=== PATIENT | female | born 1965 | race Caucasian/White ===

== ENCOUNTER → 2016-09-04 | Outpatient (CLI) | payer OTHER ==
[~2016-09-04] MED LIST: ANT25 PO; BLAC540C PO; CHOL100010 PO; CHOL20009 PO; CIPR-255 PO; DICL100T5 PO; FISH1CAP PO; HYDR12.56 PO; LEVO100T PO; LEVO112T4 PO; METR-163 PO; MULTTAB58 PO; PROBCAP PO; VITATAB11 PO
--- NOTE | 2016-09-04 10:51 | DIAGNOSTIC IMAGING REPORT ---
LEFT INJ MAJOR JN SHLDR,HIP,KNEE CLINICAL HISTORY: DJD; L HIPpain COMPARISON STUDY: None FLUOROSCOPY TIME: . FINDINGS: Following description of procedure and informed consent, a 22-gauge needle was advanced to the left hip joint space. A test injection confirmed its intra-articular location. This is followed by the administration of 5 cc of Marcaine, 2 cc of Celestone,. There are no complications. IMPRESSION: Successful left hip therapeutic injection Electronically signed by: Waldo Karimi M.D. 09/04/2016 10:49 AM Dictated Date/Time: 09/04/2016 10:48 AM
== END | disposition home or self-care (01) ==
LOC: C.RADBC 09:46
PROVIDERS: ATTEND Orthopaedic Surgery
DX: M16.12 Unilateral primary osteoarthritis, left hip (principal)

== ENCOUNTER 2017-01-10 09:10 | Emergency (ER) | payer OTHER ==
[~2017-01-10] VITALS: Ht 165.1 cm; Wt 84.1 kg
[~2017-01-10 09:10] MED LIST changes: -CHOL20009 PO; -CIPR-255 PO; -DICL100T5 PO; -FISH1CAP PO; -LEVO112T4 PO; -METR-163 PO
[2017-01-10 09:11] VITALS: TEMP 37.2; Ht 165.1 cm; Wt 84.1 kg
[2017-01-10] MEDS ORDERED: FISH1CAP PO (09:36)
[2017-01-10] MEDS ORDERED: CHOL20009 PO (09:36)
[2017-01-10] MEDS ORDERED: DICL100T5 PO (09:36)
[2017-01-10] MEDS ORDERED: LEVO112T4 PO (09:36)
[2017-01-10 10:08] LABS: ALT/SGPT 22 U/L (12-78); AST/SGOT 16 U/L (15-37); BLOOD UREA NITROGEN 12 mg/dl (7-18); BUN/CREATININE RATIO 14.6 (10-20); CALCIUM 9.2 mg/dl (8.5-10.1); CARBON DIOXIDE 28 mmol/L (21-32); CHLORIDE 106 mmol/L (98-107); GLUCOSE 80 mg/dl (70-99); POTASSIUM 3.6 mmol/L (3.5-5.1); SODIUM 141 mmol/L (136-145)
[2017-01-10 10:10] LABS: BASO % 0.4 %; BASO ABS # 0.03 K/uL (0-0.2); COMPLETE YES; EOS % 3.4 %; HEMATOCRIT 39.6 % (37-47); IG% 0.1 %; LYMPH % 16.4 %; LYMPH ABS # 1.29 K/uL (1.2-3.4); MEAN CORPUSCULAR HEMOGLOBIN 31.6 pg (25-34); MEAN CORPUSCULAR HGB CONC 35.9 g/dl (32-36); MEAN PLATELET VOLUME 9.6 fL (7.4-10.4); MONO % 6.8 %; NEUT % 72.9 %; PLATELET COUNT 226 K/uL (130-400); WHITE BLOOD COUNT 7.85 K/uL (4.8-10.8)
[2017-01-10 10:11] LABS: ALKALINE PHOSPHATASE 73 U/L (45-117)
[2017-01-10 10:18] LABS: URINE APPEARANCE CLEAR (CLEAR); URINE BILIRUBIN NEG (NEG); URINE COLOR YELLOW; URINE EPITHELIAL CELL AUTO 20-30 /lpf (0-5); URINE NITRITE NEG (NEG); URINE SPECIFIC GRAVITY 1.012 (1.000-1.030); UROBILINOGEN NEG (NEG); ZZUR CULT IF INDIC CLEAN CATCH NO
[2017-01-10 10:22] LABS: MANUAL MICROSCOPIC REQUIRED? NO; REVIEW REQ? NO
[2017-01-10] MEDS ORDERED: METR-163 PO (10:29)
[2017-01-10] MEDS ORDERED: CIPR-255 PO (10:29)
--- NOTE | 2017-01-10 10:30 | EMERGENCY ROOM VISIT NOTE ---
History First contact with patient: 09:16 Chief Complaint: ABDOMINAL PAIN Stated Complaint: LOWER ABD. PAIN/CRAMPS-DIVERTICULITIS Nursing Triage Summary: lower abd cramping and 1 episode of diarrhea a day no blood in stool no n/v pt has a hx of diverticulitis History of Present Illness The patient is a 51 year old female who presents to the Emergency Room with complaints of lower abdominal pain intermittently over the last 2 days. The patient states that she has one loose bowel movement per day and one other normal bowel movement per day. The patient denies any nausea or vomiting. The patient denies any urinary symptoms of frequency, urgency, dysuria or hematuria. The patient states that the pain is relieved with bowel movement. She currently does not have any pain. The patient states that she is concerned for diverticulitis since she has had it twice in the past. She states the symptoms are similar. She is going out of town this weekend and states she does not want to worsen while she is out of town. Review of Systems 10 system review was performed and was negative unless stated otherwise history of present illness. Past Medical/Surgical History Medical Problems: (1) section with complications (2) DIVERTICULITIS COLON (W/O MENT OF HEMORRHAGE) (3) HYPERTENSION NOS Family History Diabetes mellitus FHx: cancer FHx: heart disease Hypertension Social History Smoking Status: Never Smoker Alcohol Use: occasionally Drug Use: none Marital Status: Housing Status: lives with family Occupation Status: employed Current/Historical Medications Scheduled Cholecalciferol (Vitamin D), 2,000 UNITS PO DAILY Diclofenac Sodium (Voltaren Xr), 100 MG PO BID Fish Cxq-Voouay-Jieaonm D-Zeax ([employer] Advantage/Vitam), 2 CAP PO BID Hydrochlorothiazide (Hctz), 12.5 MG PO DAILY Levothyroxine Sodium (Levothyroxine Sodium), 112 MCG PO DAILY Multiple Vitamin (Multivitamin), 1 TAB PO DAILY Probiotic Product ([employer]), 1 CAP PO DAILY Scheduled PRN Meclizine HCl (Meclizine HCl), 1 TAB PO Q8 PRN for vetigo Allergies Coded Allergies: Codeine (Verified Allergy, Severe, ANAPHYLAXIS, 11/29/15) Morphine (Verified Allergy, Severe, ANAPHYLAXIS TO OPIOIDS (? ALL), 11/29/15 ) Morphine and Related (Unverified Allergy, Severe, ANAPHYLAXIS, 11/29/15) Physical Exam Vital Signs Date Time Temp Pulse Resp B/P (MAP) Pulse Ox O2 Delivery O2 Flow Rate FiO2 01/10/17 09:11 37.2 72 16 131/83 98 Room Air Physical Exam GENERAL: 51-year-old white female appears in no acute distress. MENTAL Status: Patient is alert and oriented 3. MOUTH: Mucosa is moist NECK: Supple, no lymphadenopathy noted. No carotid bruits noted. LUNGS: Clear auscultation without wheezes rales or rhonchi. CARDIAC: Regular rate and rhythm without murmur. Pulses is full and equal throughout. BACK: No CVA tenderness noted. ABDOMEN: Positive bowel sounds all 4 quadrants. Soft, nontender to palpation without organomegaly or masses. RECTAL: Small external hernia noted. Anal sphincter tone intact. No internal masses noted. Stool guaiac was negative. EXTREMITIES: No cyanosis or edema noted. Medical Decision & Procedures Laboratory Results 01/10/17 09:23 Red Blood Count 4.50, Mean Corpuscular Volume 88.0, Mean Corpuscular Hemoglobin 31.6, Mean Corpuscular Hemoglobin Concent 35.9, Mean Platelet Volume 9.6, Neutrophils (%) (Auto) 72.9, Lymphocytes (%) (Auto) 16.4, Monocytes (%) (Auto) 6.8, Eosinophils (%) (Auto) 3.4, Basophils (%) (Auto) 0.4, Neutrophils # (Auto) 5.72, Lymphocytes # (Auto) 1.29, Monocytes # (Auto) 0.53, Eosinophils # (Auto) 0.27, Basophils # (Auto) 0.03 01/10/17 09:23 Test 01/10/17 09:18 01/10/17 09:23 Urine Color YELLOW Urine Appearance CLEAR (CLEAR) Urine pH 8.0 (4.5-7.5) Urine Specific [place] 1.012 (1.000-1.030) Urine Protein NEG (NEG) Urine Glucose (UA) NEG (NEG) Urine Ketones NEG (NEG) Urine Occult Blood NEG (NEG) Urine Nitrite NEG (NEG) Urine Bilirubin NEG (NEG) Urine Urobilinogen NEG (NEG) Urine Leukocyte Esterase SMALL (NEG) Urine WBC (Auto) 1-5 /hpf (0-5) Urine RBC (Auto) 0-4 /hpf (0-4) Urine Hyaline Casts (Auto) 0 /lpf (0-5) Urine Epithelial Cells (Auto) 20-30 /lpf (0-5) Urine Bacteria (Auto) NEG (NEG) White Blood Count 7.85 K/uL (4.8-10.8) Red Blood Count 4.50 M/uL (4.2-5.4) Hemoglobin 14.2 g/dL (12.0-16.0) Hematocrit 39.6 % (37-47) Mean Corpuscular Volume 88.0 fL (80-100) Mean Corpuscular Hemoglobin 31.6 pg (25-34) Mean Corpuscular Hemoglobin Concent 35.9 g/dl (32-36) Platelet Count 226 K/uL (130-400) Mean Platelet Volume 9.6 fL (7.4-10.4) Neutrophils (%) (Auto) 72.9 % Lymphocytes (%) (Auto) 16.4 % Monocytes (%) (Auto) 6.8 % Eosinophils (%) (Auto) 3.4 % Basophils (%) (Auto) 0.4 % Neutrophils # (Auto) 5.72 K/uL (1.4-6.5) Lymphocytes # (Auto) 1.29 K/uL (1.2-3.4) Monocytes # (Auto) 0.53 K/uL (0.11-0.59) Eosinophils # (Auto) 0.27 K/uL (0-0.5) Basophils # (Auto) 0.03 K/uL (0-0.2) RDW Standard Deviation 38.8 fL (36.4-46.3) RDW Coefficient of Variation 12.1 % (11.5-14.5) Immature Granulocyte % (Auto) 0.1 % Immature Granulocyte # (Auto) 0.01 K/uL (0.00-0.02) Anion Gap 7.0 mmol/L (3-11) Est Creatinine Clear Calc Drug Dose 88.1 ml/min Estimated GFR () 98.2 Estimated GFR (Non- 84.8 BUN/Creatinine Ratio 14.6 (10-20) Calcium Level 9.2 mg/dl (8.5-10.1) Total Bilirubin 0.5 mg/dl (0.2-1) Direct Bilirubin < 0.1 mg/dl (0-0.2) Aspartate Amino Transf (AST/SGOT) 16 U/L (15-37) Alanine Aminotransferase (ALT/SGPT) 22 U/L (12-78) Alkaline Phosphatase 73 U/L (45-117) Total Protein 7.8 gm/dl (6.4-8.2) Albumin 3.9 gm/dl (3.4-5.0) Lipase 124 U/L (73-393) ED Course The patient's EMR and medication list were reviewed. The patient was seen here 2 years ago with similar symptoms and had a CAT scan at that time which revealed diverticulitis in the proximal sigmoid region. The patient was evaluated. IV access was obtained. CBC differential, renal profile, LFTs and lipase levels was ordered. Urinalysis was ordered. The patient was offered pain medication but declined. Labs are reviewed and were unremarkable. White count was normal. Urinalysis was negative. The patient was informed of the findings. I also discussed with the patient that since the patient is presenting with similar symptoms of her past diverticulitis I will just go ahead and prophylactically treat her without obtaining a CAT scan. The patient was in agreement with treatment plan and was discharged home in stable condition. Medical Decision Differential diagnosis include acute diverticulitis, UTI, enteritis, colitis Impression Primary Impression: Diverticulitis Departure Information Dispostion Home / Self-Care Condition GOOD Prescriptions Metronidazole (Flagyl) 500 Mg Tab 500 MG PO BID for 10 Days, #20 TAB Prov: Reyna Karimi PA-C 01/10/17 Ciprofloxacin Hcl (CIPRO) 500 Mg Tab 500 MG PO BID for 10 Days, #20 TAB Prov: Reyna Karimi PA-C 01/10/17 Referrals Tory Golden DO (PCP) Forms Call Back Authorization, HOME CARE DOCUMENTATION FORM, IMPORTANT VISIT INFORMATION Patient Instructions ED Diverticulitis, [facility] Additional Instructions Follow bland diet. Push fluids. Take Cipro and Flagyl as directed. If you experience any severe abdominal pain, severe rectal bleeding, fever return to ER immediately. Problem Qualifiers Primary Impression: Diverticulitis Diverticulitis site: large intestine Diverticulitis bleeding: without bleeding Diverticulitis complication: with perforation and abscess Qualified Codes: K57.20 - Diverticulitis of large intestine with perforation and abscess without bleeding
[2017-01-10 10:39] VITALS: BP 151/85; PULSE 67; O2SAT 98
== END 2017-01-10 10:40 | disposition home or self-care (01) ==
LOC: C.EDB 09:11
DX: K57.20 Diverticulitis of large intestine with perforation and abscess without bleeding (principal); I10 Essential (primary) hypertension; Z83.3 Family history of diabetes mellitus; Z82.49 Family history of ischemic heart disease and other diseases of the circulatory system; Z80.9 Family history of malignant neoplasm, unspecified; Z79.899 Other long term (current) drug therapy

== ENCOUNTER 2017-01-21 05:05 | Emergency (ER) | payer OTHER ==
[~2017-01-21] VITALS: Ht 165.1 cm; Wt 65.7 kg
[~2017-01-21 05:05] MED LIST changes: -BLAC540C PO; -CHOL100010 PO; +CHOL20009 PO; +CIPR-255 PO; +DICL100T5 PO; +FISH1CAP PO; -LEVO100T PO; +LEVO112T4 PO; +METR-163 PO; -VITATAB11 PO
[2017-01-21 05:07] VITALS: TEMP 36.6; Ht 165.1 cm; Wt 65.7 kg
[2017-01-21] MEDS ORDERED: TROLAMINE SALICYLATE 10% CRM 255 APPLN/85 GM TUBE EXT STA (05:24)
--- NOTE | 2017-01-21 05:50 | EMERGENCY ROOM VISIT NOTE ---
History First contact with patient: 05:10 Chief Complaint: HIP PAIN Stated Complaint: LEFT HIP PAIN History of Present Illness The patient is a 51 year old female who presents to the Emergency Room with complaints of left groin pain for the past day after walking the mall with her mother. She describes pain as aching, ranging in severity 4-10 worse with movement and better with rest. No direct injury to the area. Patient was able to do the elliptical works for the pain. She is a positive this hip before. This pain feels different. She follows with Dr. Hicks and Dr. [facility]. Patient denies abdominal pain, back pain, fevers, swelling, redness, injury to the area, urinary symptoms, radiating pain, numbness, tingling. Review of Systems See HPI for pertinent positives & negatives. A total of 6 systems reviewed and were otherwise negative. Past Medical/Surgical History Medical Problems: (1) section with complications (2) DIVERTICULITIS COLON (W/O MENT OF HEMORRHAGE) (3) HYPERTENSION NOS Family History Diabetes mellitus FHx: cancer FHx: heart disease Hypertension Social History Smoking Status: Never Smoker Alcohol Use: occasionally Drug Use: none Marital Status: Housing Status: lives with family Occupation Status: employed Current/Historical Medications Scheduled Cholecalciferol (Vitamin D), 2,000 UNITS PO DAILY Ciprofloxacin Hcl (Cipro), 500 MG PO BID Diclofenac Sodium (Voltaren Xr), 100 MG PO BID Fish Agf-Ypcakf-Zwwgbdu D-Zeax (Eye [employer] Advantage/Vitam), 2 CAP PO BID Hydrochlorothiazide (Hctz), 12.5 MG PO DAILY Levothyroxine Sodium (Levothyroxine Sodium), 112 MCG PO DAILY Multiple Vitamin (Multivitamin), 1 TAB PO DAILY Probiotic Product ([employer]), 1 CAP PO DAILY Scheduled PRN Meclizine HCl (Meclizine HCl), 1 TAB PO Q8 PRN for vetigo Physical Exam Vital Signs Date Time Temp Pulse Resp B/P (MAP) Pulse Ox O2 Delivery O2 Flow Rate FiO2 01/21/17 05:07 36.6 65 20 145/86 97 Room Air Physical Exam VITALS: Vitals are noted on the nurse's note and reviewed by myself. Vital signs stable. GENERAL: Pleasant female ambulating into the ER, in no acute distress, nondiaphoretic, well-developed well-nourished. SKIN: Capillary reflex less than 2 seconds. HEENT: Normocephalic. PERRLA. EOMI. Nares patent. Mucous membranes moist. HEART: Regular rate and rhythm without murmurs gallops or rubs. LUNGS: Clear to auscultation bilaterally without wheezes, rales or rhonchi. No retractions or accessory muscle use. ABDOMEN: Positive bowel sounds x 4. Normal tympanic percussion. Soft, nontender, without masses or organomegaly. Kruger sign negative. No guarding or rebound tenderness. MUSCULOSKELETAL: No gross musculoskeletal defects. Pelvis stable: Left iliopsoas muscle tender to palpation easily reproducing symptoms, increased pain with range of motion of the hip, right hip nontender to palpation with full range of motion. No thoracic or lumbar tenderness on exam. 5 out of 5 strength throughout lower extremities. NEURO: Patient was alert and oriented to person place and time. Normal sensation to light and sharp touch. No focal neurological deficits. Medical Decision & Procedures ED Course Prior records/ancillary studies reviewed. Triage Nursing notes reviewed. Additional history obtained from family. The patient's history was concerning for left groin pain Differential diagnosis: Etiologies such as sprain, strain, tear, musculoskeletal, disc herniation, fracture, metastatic disease, infection, renal colic, gastrointestinal, as well as others were entertained. Physical findings: As above. No focal neurologic findings noted. ER treatment provided: Myoflex cream On reassessment the patient felt better. Diagnostics interpreted by me: Imaging studies: Hip and pelvis x-ray was reviewed by myself with no acute fracture dislocation. This appears to be consistent with left groin strain. Patient was neurovascular and neurologically intact. No fracture on x-ray. No trauma. No signs of infection. She is advised to stretch the area out and take her anti- inflammatories as directed. She is advised to try the muscle cream as needed. She is advised to follow-up with her orthopedics in a few days if symptoms persist or here in the ER sooner for severe pain, numbness, tingling, inability to walk, worsening signs or symptoms or as needed. The patient's physical examination and detailed history did not reveal any red flags for hip pain such as those listed in the differential diagnosis. Therefore advanced diagnostics and consultations were felt to be unwarranted. By the evaluation outlined above emergent etiologies such as fracture, aortic disease, metastatic disease, infection, renal colic, gastrointestinal, cord compression, cauda equina, as well as others were deemed relatively unlikely. The pt informed about the findings as listed above. All questions were answered and pleased with the treatment. Return instructions were outlined and the patient was discharged in stable condition. Referral: The patient was referred back to her orthopedic doctor and/or primary care physician for follow-up in 5- 7 days for a recheck of the current condition. Medical Decision As above Blood Pressure Screening Patient's blood pressure: Elevated blood pressure Blood pressure disposition: Elevated BP felt to be situational Impression Primary Impression: Strain of left inguinal muscle Departure Information Dispostion Home / Self-Care Condition GOOD Referrals Tory Golden, (PCP) Patient Instructions [facility] Additional Instructions Stretch the area out. Avoid activities that causes pain until pain has resolved. Myoflex cream: Apply to the affected area 3 times a day. Continue your diclofenac in the morning and take Advil PM at night. You may also take acetaminophen: Acetaminophen(Tylenol) may be used for fever or pain. Use 1000mg every six hours as needed. Avoid using more than 3000mg in a 24 hour period. This medication can be taken if you need to drive, work, or perform activities which may be dangerous when taking narcotic pain medication. Ice compresses for 20 minutes at a time four times daily or you can try heating pad. Continue current medications. Return to the ER immediately for any numbness, tingling, severe pain, extreme swelling in the extremity or as needed. Call your Orthopedics in 1 week if symptoms persist to arrange follow up for your injury. Problem Qualifiers Primary Impression: Strain of left inguinal muscle Encounter type: initial encounter Qualified Codes: S39.013A - Strain of muscle, fascia and tendon of pelvis, initial encounter
[2017-01-21 05:59] VITALS: BP 133/85; PULSE 62; O2SAT 95
--- NOTE | 2017-01-21 06:45 | DIAGNOSTIC IMAGING REPORT ---
L PELVIS/UNILATERAL HIP 2-3VIEWS HISTORY: 51 years-old Female pain, left acute left hip pain without known injury COMPARISON: Pelvis and left hip radiographs 08/13/2016 TECHNIQUE: AP view of the pelvis with 2 views of the left FINDINGS: Bony pelvis is intact. Mild degenerative changes about the SI joints and pubic symphysis. Moderate facet arthrosis of the lower lumbar spine. No acute fracture or dislocation. 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 Soft tissues are unremarkable. IMPRESSION: 1. No acute fracture or dislocation. 2. 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 The above report was generated using voice recognition software. It may contain grammatical, syntax or spelling errors. Electronically signed by: Yuri Francis M.D. 01/21/2017 6:44 AM Dictated Date/Time: 01/21/2017 6:42 AM
== END 2017-01-21 06:00 | disposition home or self-care (01) ==
LOC: C.EDB 05:06 → C.EDA 06:00
DX: S39.013A Strain of muscle, fascia and tendon of pelvis, initial encounter (principal); M16.12 Unilateral primary osteoarthritis, left hip; X50.9XXA Other and unspecified overexertion or strenuous movements or postures, initial encounter; Y93.01 Activity, walking, marching and hiking; Z79.899 Other long term (current) drug therapy; I10 Essential (primary) hypertension

== ENCOUNTER → 2017-01-24 | Outpatient (CLI) | payer OTHER ==
[~2017-01-24] MED LIST changes: -METR-163 PO
--- NOTE | 2017-01-24 12:30 | DIAGNOSTIC IMAGING REPORT ---
Reece FENG SHLDR,HIP,KNEE FLUOROSCOPY TIME: 19 seconds HISTORY: Chronic left hip pain.. PROCEDURE: After obtaining written informed consent, the patient was placed supine on the fluoroscopy table. A suitable site for needle insertion was marked using fluoroscopic guidance. The left hip was prepped and draped in the usual sterile fashion. 1% lidocaine was used for skin, subcutaneous and deep soft tissue anesthesia. Under intermittent fluoroscopic guidance, a 22 gauge x 3.5 inch spinal needle was inserted into the left femoral acetabular joint. 2 cc of Optiray 300 was injected to confirm the intra-articular location. This is followed by a mixture of 5cc of 0.5% bupivacaine and 2 cc of betamethasone at the request of the referring physician. The needle was then removed. There were no apparent complications. IMPRESSION: Fluoroscopic-guided left hip steroid injection without immediate complication. The above report was generated using voice recognition software. It may contain grammatical, syntax or spelling errors. Electronically signed by: Yuri Francis M.D. 01/24/2017 12:29 PM Dictated Date/Time: 01/24/2017 12:27 PM
== END | disposition home or self-care (01) ==
LOC: C.RADBC 10:39
PROVIDERS: ATTEND Orthopaedic Surgery
DX: M16.12 Unilateral primary osteoarthritis, left hip (principal)